=== PATIENT | male | born 1980 | race Caucasian/White ===

== ENCOUNTER 2019-04-30 18:01 | Emergency (ER) | payer MEDICARE ==
[2019-04-30 18:34] VITALS: BP 117/87
--- NOTE | 2019-04-30 18:34 | Event Note ---
ED Screening Note ED Screening Note: PMH ANXIETY DEPRESSION DM SPINAL FUSION HPLD HTN RX BUSPAR METFORMIN TRESIBA STATIN PROZAC LISINOPRIL CO OF L KNEE PAIN AFTER LIFTING OBJECTS AT HOME FELT A POP CAN NOT STAND ON LEG DUE TO PAIN This initial assessment/diagnostic orders/clinical plan/treatment(s) is/are subject to change based on patients health status, clinical progression and re- assessment by fellow clinical providers in the ED. Further treatment and workup at subsequent clinical providers discretion. Patient/guardian urged not to elope from the ED as their condition may be serious if not clinically assessed and managed. Initial orders include: XRAY L KNEE RX
[2019-04-30] MEDS ORDERED: IBUPROFEN PO ONE (19:20)
--- NOTE | 2019-04-30 20:03 | XRay Report ---
Left knee 3 views INDICATION / CLINICAL INFORMATION: L KNEE PAIN. COMPARISON: None available. FINDINGS: BONES/JOINT(S): No acute fracture or subluxation. No significant degenerative changes. Normal bone mi neralization. No significant joint effusion. SOFT TISSUES: No significant abnormality. ADDITIONAL FINDINGS: None. Signer Name: Yosvany Garcia MD Signed: 04/30/2019 7:58 PM Workstation Name: [id number]
== END 2019-04-30 22:00 ==
LOC: ED 18:01
DX: M25.562 Pain in left knee (principal); Z53.21 Procedure and treatment not carried out due to patient leaving prior to being seen by health care provider